=== PATIENT | male | born 1970 | race Caucasian/White ===

== ENCOUNTER 2016-09-06 12:35 | Emergency (ER) | payer BC, OTHER ==
[2016-09-06 13:02] LABS: Urine Appearance Slightly Cloudy; Urine Bilirubin Negative (NEGATIVE); Urine Blood Negative /ul (NEGATIVE); Urine Color Yellow; Urine Ketone Negative (NEGATIVE); Urine Nitrite Negative (NEGATIVE); Urine Protein Negative (NEGATIVE); Urine Specific Gravity 1.025 SP.GR. (1.005-1.030); Urine Urobilinogen Normal (NORMAL)
[2016-09-06 13:10] LABS: Urine Bacteria TRACE; Urine RBC None Seen /hpf (0-5)
--- NOTE | 2016-09-06 13:28 | ERNOTE ---
ER Male HPI Date of Service: 09/06/16 Stated Complaint: TROUBLE URINATING ER Male: penile discharge, dysuria, testicular pain Time Seen by Provider: 09/06/16 13:10 Source: patient, family Exam Limitations: no limitations Immunizations: IMMUNIZATION HX Immunizations Up to Date Yes History of Influenza Vaccine Yes Allergies/Adverse Reactions: Allergies No Known Allergies Allergy (Unverified 09/06/16 12:43) Home Medications: HOME MEDICATIONS Doxycycline Monohydrate 100 mg PO BID #20 tablet 09/06/16 [Last Taken Unknown] - History of Present Illness Narrative: Pt. comes in with c/o discharge and burning with L testicle tenderness for four days. Pt. denies any SOB, CP, NVD, numbness or tingling. Pt. denies any prehospital treatment, alleviating factors, or aggravating factors. Review of Systems - Review of Systems Constitutional: Present: no symptoms reported. Absent: recent illness, fever, chills, fatigue, malaise EYE: Present: no symptoms reported ENT: Present: no symptoms reported Respiratory: Present: no symptoms reported. Absent: shortness of breath, cough , wheezing Cardiology: Present: no symptoms reported. Absent: chest pain, palpitations, edema Gastrointestinal/Abdominal: Present: no symptoms reported. Absent: nausea, vomiting, diarrhea Genitourinary: Present: pain - L testicle, dysuria, discharge - green. Absent: hematuria, decreased urinary output Musculoskeletal: Present: no symptoms reported. Absent: back pain, joint pain Skin: Present: no symptoms reported Neurological: Present: no symptoms reported. Absent: headache, dizziness/light- headedness, numbness, tingling All Other Systems: All systems neg except as marked - Patient's Past Medical History Patient History - Medical: No pertinent hx Patient History - Cancer: No Hx of Cancer Patient History - Surgical Procedures: No surgical history - Social History Smoking Status: Never smoker Have you smoked in the past 12 months: No Do you dip or chew tobacco: Yes Alcohol Use: occasionally Drug Use: none Physical Exam - Physical Exam General Appearance: Present: wd/wn, alert, no apparent distress Eye Exam: Normal inspection: bilateral, PERRL: bilateral, EOMI: bilateral Ears, Nose, Throat: Present: normal ENT inspection, hearing grossly normal, normal pharynx Neck: Present: normal inspection, nontender. Absent: lymphadenopathy (R), lymphadenopathy (L) Respiratory: Present: no respiratory distress, normal breath sounds, no accessory muscle use, chest nontender, lungs clear Cardiovascular/Chest: Present: regular rate, rhythm, no murmur, normal peripheral pulses Gastrointestinal/Abdominal: Present: normal bowel sounds, nontender, nondistended, soft, no organomegaly Male Genitals Exam: Present: scrotum tenderness (L), testicular tenderness (L), urethral discharge - clear. Absent: epididymal tenderness, inguinal tenderness Back Exam: Present: normal inspection, normal range of motion, no CVA tenderness , no vertebral tenderness Extremity Exam: Present: normal inspection, non-tender, no edema, normal range of motion Neurological Exam: Present: alert, oriented, normal mood/affect, no motor/ sensory deficits, vehicle washer II-XII nml as tested, normal cerebellar test Skin Exam: Present: normal color, warm/dry. Absent: pallor, skin rash ED Progress - Results and Orders Patient's Lab Results:: I have reviewed the patient's lab results. - Vital Signs Patient's Vital Signs:: I have reviewed the patient's vital signs. Vital Signs: Vital Signs 09/06/16 12:41 Temperature 37 C Pulse Rate 64 Respiratory 14 Rate Blood Pressure 137/96 O2 Sat by Pulse 99 Oximetry - CT/Ultrasound CT/Ultrasound Narrative: US positive for L epidydimitis - Progress/Reassessment Chief Complaint: Urinary Tract Problems Departure Clinical Impression: Acute epididymitis - Departure Disposition: Home self-care Condition: Good Instructions: Epididymitis Additional Instructions: Please follow up with primary provider in 2-3 days Prescriptions: Doxycycline Monohydrate 100 mg PO BID #20 tablet
[2016-09-06 15:09] VITALS: BP 128/88
== END 2016-09-06 15:09 | disposition home or self-care (01) ==
LOC: ER 12:35
DX: N45.1 Epididymitis (principal)